=== PATIENT | male | born 1980 | race African-American/Black ===

== ENCOUNTER 2021-04-19 06:28 | Emergency (ER) | payer BC, OTHER ==
[~2021-04-19] VITALS: Ht 170.2 cm; Wt 66.5 kg
[2021-04-19] MEDS ORDERED: IBUPROFEN 600MG TABLET PO ONE (07:15)
[2021-04-19] MEDS ORDERED: DOXY100C5 MT (07:20)
[2021-04-19 07:27] LABS: CLARITY URINE CLEAR (CLEAR); COLOR URINE YELLOW (YELLOW); KETONES URINE NEGATIVE (NEGATIVE); LEUKOCYTE ESTERASE URINE TRACE (NEGATIVE); NITRITE URINE NEGATIVE (NEGATIVE); OCCULT BLOOD URINE NEGATIVE (NEGATIVE); PH URINE 6.5 (4.5-8.0); PROTEIN URINE NEGATIVE (NEGATIVE); SPECIFIC GRAVITY URINE 1.015 (1.005-1.030); UROBILINOGEN URINE 0.2 E.U./dL (0.2-1.0)
[2021-04-19] MEDS ORDERED: CEFTRIAXONE SODIUM 500 MG/VIAL IM ONE (07:30)
[2021-04-19] MEDS ORDERED: DOXYCYCLINE HYCLATE 100MG CAPSULE PO ONE (07:30)
[2021-04-19 07:40] VITALS: BP 123/71
[2021-04-21 04:10] LABS: NEISSERIA GONORRHOEAE NAA Negative (Negative)
== END 2021-04-19 07:53 | disposition home or self-care (01) ==
LOC: ER 06:28
DX: N34.2 Other urethritis (principal)
CPT/HCPCS: 81003; 87491; 87591; 96372; 99283; J0696

== ENCOUNTER 2021-10-21 06:05 | Emergency (ER) | payer BC, MEDICAID, OTHER ==
[~2021-10-21] VITALS: Ht 170.2 cm; Wt 65.3 kg
[~2021-10-21 06:05] MED LIST: DOXY100C5 MT
[2021-10-21 06:10] VITALS: BP 153/93
[2021-10-21] MEDS ORDERED: ONDANSETRON HCL 4MG/2ML INJ IV STA (06:21)
[2021-10-21] MEDS ORDERED: SODIUM CHLORIDE 0.9% 1,000 ML IV ONE (06:30)
[2021-10-21] MEDS ORDERED: KETOROLAC 30MG/ML VIAL IV ONE (06:30)
[2021-10-21 06:50] LABS: BASOPHILS % 0.3 % (0.0-2.0); EOSINOPHILS % 0.5 % (0.0-5.0); HEMOGLOBIN. 15.2 g/dL (14.0-18.0); LYMPHOCYTES % 20.5 % (20.0-50.0); MEAN CORPUSCULAR HEMOGLOBIN 29.2 pg (28.0-32.0); MEAN CORPUSCULAR VOLUME 86.6 fL (80.0-94.0); MEAN PLATELET VOLUME 7.8 fl (7.4-10.4); MONOCYTES % 7.4 % (2.0-8.0); NEUTROPHILS % 71.3 % (40.0-76.0); PLATELET 231 x1000/uL (130-400); RED CELL DISTRIBUTION WIDTH 14.7 % (11.6-14.6)
[2021-10-21 06:56] LABS: CHLORIDE 107 mEq/L (98-107)
== END 2021-10-21 07:26 | disposition left against medical advice (07) ==
LOC: ER 06:05
DX: Z53.29 Procedure and treatment not carried out because of patient's decision for other reasons (principal); Z20.822 Contact with and (suspected) exposure to COVID-19
CPT/HCPCS: 36415; 80053; 83690; 85025; 99283; J7030

== ENCOUNTER 2023-05-26 08:42 | Emergency (ER) | payer OTHER ==
[~2023-05-26] VITALS: Ht 170.2 cm; Wt 68.0 kg
[2023-05-26 08:55] VITALS: BP 109/79; PULSE 93; RESP 18; TEMP 97.6; O2SAT 100
[2023-05-27] MEDS ORDERED: ALBU18HF2 IH (10:49)
[2023-05-27] MEDS ORDERED: IBUP-2029 MT (10:49)
== END 2023-05-26 13:12 | disposition left against medical advice (07) ==
LOC: ER 08:42
DX: R06.02 Shortness of breath (principal); Z53.21 Procedure and treatment not carried out due to patient leaving prior to being seen by health care provider
CPT/HCPCS: 99281

== ENCOUNTER 2023-05-27 08:33 | Emergency (ER) | payer MEDICAID, OTHER ==
[~2023-05-27] VITALS: Ht 175.3 cm; Wt 77.0 kg
[2023-05-27 08:34] VITALS: BP 138/89; PULSE 84; RESP 20; TEMP 97.6; O2SAT 99
[2023-05-27] MEDS ORDERED: ALBU18HF2 IH (10:49)
[2023-05-27] MEDS ORDERED: IBUP-2029 MT (10:49)
== END 2023-05-27 11:24 | disposition home or self-care (01) ==
LOC: ER 08:54
DX: B34.9 Viral infection, unspecified (principal); Z88.0 Allergy status to penicillin
CPT/HCPCS: 71045; 99283

== ENCOUNTER 2023-07-06 11:56 | Emergency (ER) | payer MEDICAID ==
[~2023-07-06] VITALS: Ht 177.8 cm; Wt 74.0 kg
[~2023-07-06 11:56] MED LIST changes: +ALBU18HF2 IH; +IBUP-2029 MT
[2023-07-06] MEDS ORDERED: P20 MT (13:55)
[2023-07-06] MEDS ORDERED: ALBU18HF2 IH (13:57)
[2023-07-06] MEDS: PREDNISONE 20MG TABLET PO ONE (14:22)
[2023-07-06 14:24] VITALS: PULSE 95; RESP 18; O2SAT 96
[2023-07-06] MEDS: IPRATROPIUM/ALBUTEROL 0.5-3(2.5)MG/3ML NEB HHN ONE (14:24)
[2023-07-06 14:47] VITALS: BP 154/88; PULSE 65; RESP 17; TEMP 98.4
== END 2023-07-06 16:05 | disposition home or self-care (01) ==
LOC: ER 12:42
DX: J40 Bronchitis, not specified as acute or chronic (principal); Z88.0 Allergy status to penicillin
CPT/HCPCS: 71045; 94640; 99283; J7512; Z7610

== ENCOUNTER 2024-04-01 20:50 | Emergency (ER) | payer MEDICAID ==
[~2024-04-01] VITALS: Ht 170.2 cm; Wt 77.9 kg
[~2024-04-01 20:50] MED LIST changes: +P20 MT
[2024-04-01 20:51] VITALS: O2SAT 99
[2024-04-01] MEDS: CYCLOBENZAPRINE 10MG TABLET PO ONE (23:00)
[2024-04-01] MEDS: IBUPROFEN 600MG TABLET PO ONE (23:00)
[2024-04-01] MEDS: ALBUTEROL (0.083%) 2.5MG/3ML NEB HHN ONE (23:08)
[2024-04-01] MEDS ORDERED: CYCL10TA21 MT (23:50)
[2024-04-02 00:30] VITALS: BP 133/79; PULSE 71; RESP 19; TEMP 36.89184; O2SAT 98
== END 2024-04-02 00:31 | disposition home or self-care (01) ==
LOC: ER 20:50
DX: M54.50 Low back pain, unspecified (principal); R05.8 Other specified cough; Z88.0 Allergy status to penicillin; Z79.899 Other long term (current) drug therapy; V49.40XA Driver injured in collision with unspecified motor vehicles in traffic accident, initial encounter; Y93.89 Activity, other specified; Y92.89 Other specified places as the place of occurrence of the external cause; Y99.8 Other external cause status
CPT/HCPCS: 71045; 99283